=== PATIENT | female | born 1995 | race Caucasian/White ===

== ENCOUNTER → 2019-01-04 | Outpatient (CLI) | payer OTHER ==
--- NOTE | 2019-01-04 12:51 | NEURO WORKBENCH EEG REPORT ---
EEG Report Patient: Emily Mcarthur ID: [id number] Referring Doctor: Rupesh Sharma Date: 01/04/2019 Reason for study: Evaluate Epileptiform activity Medications: Vitamins History: This is a 23 year old female with a history of migraines since age 8 years, anxiety, who is 15 weeks . Approximately one month ago she had a migraine associated with slurred speech and memory impairment. This EEG was requested for evaluation of epileptiform activity. EEG Interpretation: This EEG was recorded during wakefulness, stage I, and stage II sleep. The awake EEG is characterized by a well organized background with a well developed and reactive posterior dominant rhythm (PDR) of approximately 10-11 Hz. The remainder of the waking background consisted of low amplitude frontally predominant beta activity. The EEG is symmetric in amplitudes and frequencies. There was occasional Mu rhythm noted in the right central region. Photic stimulation resulted in photic driving, and there was no epileptiform activity elicited with photic stimulation. Hyperventilation resulted in the appearance of diffuse high amplitude 4-7 Hz theta and 1-3 Hz delta activity (normal for age) and no epileptiform activity was elicited. There was frequent stage I sleep achieved and characterized by slow rolling eye movements, slowing of the background rhythm by 1-2 Hz, more prominent intermixed theta activity, and vertex waves. There were several periods of hypnogogic hypersynchrony characterized by high amplitude polymorphic mixed delta-theta activity lasting several seconds. Stage II sleep was achieved and symmetric sleep spindles were noted. There were no epileptiform abnormalities (no sharp waves and no spikes). There were no seizures. The EKG showed a regular rhythm with typically 60-90 beats per minute. EEG Impression: This EEG is within normal limits for age, and had frequent drowsiness/stage I sleep. There was no epileptiform activity or seizures. A single normal routine EEG does not rule out the possibility of epilepsy. If there is high clinical suspicion for epilepsy, then additional EEG evaluation should be considered with a sleep-deprived EEG or more prolonged EEG monitoring. INTERPRETING NEUROLOGIST: Junior Carmichael MD Board certified by the [place] [employer] [employer] in Neurology, Clinical Neurophysiology, and Sleep Medicine [facility]ENTERLynn
== END ==
LOC: NEURO 08:14
PROVIDERS: ATTEND Pediatrics
DX: R51 Headache (principal); R41.82 Altered mental status, unspecified; R20.0 Anesthesia of skin; Z33.1 Pregnant state, incidental
CPT/HCPCS: 95819

== ENCOUNTER 2019-05-27 19:08 | Outpatient (CLI) | payer OTHER ==
[2019-05-27 19:52] LABS: APPEARANCE,URINE CLEAR; BILIRUBIN,URINE NEGATIVE (NEGATIVE); COLOR,URINE YELLOW; GLUCOSE, URINE NEGATIVE (NEGATIVE); KETONES,URINE NEGATIVE (NEGATIVE); LEUKOCYTE ESTERASE,URINE NEGATIVE (NEGATIVE); NITRITE,URINE NEGATIVE (NEGATIVE); PROTEIN,URINE NEGATIVE (NEGATIVE); URINE SPECIFIC GRAVITY 1.009; UROBILINOGEN,URINE NEGATIVE mg/dL (<2.0)
[2019-05-27 20:00] LABS: URINE AMPHETAMINES SCREEN NEGATIVE; URINE BARBITURATES SCREEN NEGATIVE; URINE BENZODIAZEPINES SCREEN NEGATIVE; URINE COCAINE SCREEN NEGATIVE; URINE MARIJUANA (THC) SCREEN NEGATIVE; URINE METHADONE SCREEN NEGATIVE; URINE PHENCYCLIDINE SCREEN NEGATIVE
[2019-05-27] MEDS ORDERED: ONDANSETRON 4 MG TAB.RAPDIS PO ONE (20:32)
[2019-05-27] MEDS ORDERED: HYDROXYZINE PAMOATE 50 MG CAPSULE PO ONE (20:32)
[2019-05-27] MEDS ORDERED: HYDROXYZINE PAMOATE 50 MG CAPSULE ONE (20:35)
[2019-05-27] MEDS ORDERED: ONDANSETRON 4 MG TAB.RAPDIS ONE (20:35)
== END 2019-05-27 21:38 | disposition home or self-care (01) ==
LOC: LC 19:08
PROVIDERS: ATTEND Obstetrics & Gynecology
PROC: 4A1HXCZ Monitoring of Products of Conception, Cardiac Rate, External Approach (ICD-10-PCS; principal; 2019-05-27)
DX: O47.03 False labor before 37 completed weeks of gestation, third trimester (principal); Z3A.36 36 weeks gestation of pregnancy
CPT/HCPCS: 81001; 80307; 84112; 59025; S0119

== ENCOUNTER 2019-05-30 15:19 | Outpatient (CLI) | payer OTHER, MEDICAID ==
--- NOTE | 2019-05-30 15:25 | Non Stress Test Report ---
Non Stress Test Datetime Report Generated by CPN: 05/30/2019 15:24 DEMOGRAPHIC Test Number: 1 EGA NST: 36.0 INDICATION Indication for Study (NST) Other: lc VITAL SIGNS Temperature - NST: 98.1 Pulse - NST: 85 RESP - NST: 16 NBPSYS NST: 118 NBPDIA NST: 76 URINE RESULTS Urine Protein, NST: Negative Urine Ketones - NST: Negative Urine Glucose - NST: Negative Urine Blood - NST: Negative MONITORING Monitor Explained: Monitor Explained; Test Explained; Patient Verbalized Understanding Time on Monitor: 05/27/2019 19:34 Time off Monitor: 05/27/2019 21:00 NST Duration: 86 NST INTERVENTIONS NST Interventions: PO Hydration Physician Notified NST: Dr. Younger BABY A: [id number] BABY A Movement : Present Contraction Frequency : 2-4 FHR Baseline : 130 Accelerations : 15X15 Decelerations : None Variability : Moderate 6-25bpm NST Review: Meets Criteria for Reactive NST NST Review and Verified By : Lizzette Gutiérrez RN NST Results: Reactive NST REPORT Report Trigger: Send Report Report Trigger: Send Report
[2019-05-30 16:01] LABS: APPEARANCE,URINE CLOUDY; BILIRUBIN,URINE NEGATIVE (NEGATIVE); COLOR,URINE YELLOW; GLUCOSE, URINE NEGATIVE (NEGATIVE); KETONES,URINE NEGATIVE (NEGATIVE); LEUKOCYTE ESTERASE,URINE SMALL (NEGATIVE); NITRITE,URINE NEGATIVE (NEGATIVE); PROTEIN,URINE NEGATIVE (NEGATIVE); URINE SPECIFIC GRAVITY 1.009; UROBILINOGEN,URINE NEGATIVE mg/dL (<2.0)
[2019-05-30 16:22] LABS: URINE AMPHETAMINES SCREEN NEGATIVE; URINE BARBITURATES SCREEN NEGATIVE; URINE BENZODIAZEPINES SCREEN NEGATIVE; URINE COCAINE SCREEN NEGATIVE; URINE MARIJUANA (THC) SCREEN NEGATIVE; URINE METHADONE SCREEN NEGATIVE; URINE PHENCYCLIDINE SCREEN NEGATIVE
--- NOTE | 2019-05-30 17:55 | Non Stress Test Report ---
Non Stress Test Datetime Report Generated by CPN: 05/30/2019 17:55 INDICATION Indication for Study (NST) Other: LOF, Greater than 32 weeks MONITORING Monitor Explained: Monitor Explained; Test Explained; Patient Verbalized Understanding Time off Monitor: 05/29/2019 16:54 NST INTERVENTIONS NST Interventions: PO Hydration Physician Notified NST: Dr. Goins BABY A Movement : Present Contraction Frequency : 0 FHR Baseline : 130 Accelerations : 15X15 Decelerations : None Variability : Moderate 6-25bpm NST Review: Meets Criteria for Reactive NST NST Review and Verified By : Celsa Campos RN NST Results: Reactive NST REPORT Report Trigger: Send Report
== END 2019-05-30 17:12 | disposition home or self-care (01) ==
LOC: LC 15:19
PROVIDERS: ATTEND Obstetrics & Gynecology Gynecology
PROC: 4A1HXCZ Monitoring of Products of Conception, Cardiac Rate, External Approach (ICD-10-PCS; principal; 2019-05-30)
DX: Z36.89 Encounter for other specified antenatal screening (principal); Z3A.36 36 weeks gestation of pregnancy
CPT/HCPCS: 59025; 80307; 81005; 84112

== ENCOUNTER 2019-06-03 19:22 | Outpatient (CLI) | payer OTHER, MEDICAID ==
[2019-06-03 20:07] LABS: APPEARANCE,URINE CLOUDY; BILIRUBIN,URINE NEGATIVE (NEGATIVE); COLOR,URINE YELLOW; GLUCOSE, URINE NEGATIVE (NEGATIVE); KETONES,URINE 20 mg/dL (NEGATIVE); LEUKOCYTE ESTERASE,URINE MODERATE (NEGATIVE); NITRITE,URINE NEGATIVE (NEGATIVE); PROTEIN,URINE NEGATIVE (NEGATIVE); URINE SPECIFIC GRAVITY 1.017; UROBILINOGEN,URINE NEGATIVE mg/dL (<2.0)
[2019-06-03 20:16] LABS: URINE AMPHETAMINES SCREEN NEGATIVE; URINE BARBITURATES SCREEN NEGATIVE; URINE BENZODIAZEPINES SCREEN NEGATIVE; URINE COCAINE SCREEN NEGATIVE; URINE MARIJUANA (THC) SCREEN NEGATIVE; URINE METHADONE SCREEN NEGATIVE; URINE PHENCYCLIDINE SCREEN NEGATIVE
--- NOTE | 2019-06-03 21:44 | RADIOLOGY REPORT (SQ) ---
EXAM DESCRIPTION: US BIOPHYSICAL PROFILE WITHOUT NON STRESS TEST COMPLETED DATE/TME: 06/03/2019 00:00 CLINICAL HISTORY: 24 years, Female, inconclusive NST COMPARISON: None. TECHNIQUE: LIMITATIONS: None. FINDINGS: There is a live IUP in vertex presentation. cardiac activity was measured at 140 bpm. There is a normal amount of amniotic fluid. The amniotic fluid index is 19 cm. The biophysical profile is 6/8. Zero points were given for tone. IMPRESSION: The biophysical profile is 6/8. copyright 2010 [employer]- All Rights Reserved
== END 2019-06-03 21:36 | disposition home or self-care (01) ==
LOC: LC 19:22
PROVIDERS: ATTEND Obstetrics & Gynecology Gynecology
PROC: 4A1HXCZ Monitoring of Products of Conception, Cardiac Rate, External Approach (ICD-10-PCS; principal; 2019-06-03)
DX: Z36.89 Encounter for other specified antenatal screening (principal); Z3A.37 37 weeks gestation of pregnancy
CPT/HCPCS: 76819; 80307; 81001

== ENCOUNTER 2019-06-04 11:48 | Outpatient (CLI) | payer OTHER, MEDICAID ==
--- NOTE | 2019-06-04 13:16 | Non Stress Test Report ---
Non Stress Test Datetime Report Generated by CPN: 06/04/2019 13:16 DEMOGRAPHIC EGA NST: 37.1 EGA NST: 37.0 INDICATION Indication for Study (NST) Other: repeat NST and BPP from yest Indication for Study (NST) Other: inconclusive in office URINE RESULTS Urine Glucose - NST: Negative MONITORING Monitor Explained: Monitor Explained; Test Explained; Patient Verbalized Understanding Time on Monitor: 06/04/2019 12:02 Time on Monitor: 06/03/2019 19:51 Time off Monitor: 06/04/2019 12:22 Time off Monitor: 06/03/2019 20:30 NST Duration: 20 NST Duration: 39 NST INTERVENTIONS NST Interventions: PO Hydration NST Interventions: PO Hydration; Reposition Patient; Vibroacoustic Stim; For Biophysical Profile Physician Notified NST: Dr. Goins BABY A: [id number] BABY A Movement : Present Movement : Present Contraction Frequency : 0 Contraction Frequency : 0 FHR Baseline : 145 FHR Baseline : 140 Accelerations : 10X10 Accelerations : 15X15 Decelerations : None Decelerations : None Variability : Minimal - Undetectable to <=5bpm Variability : Moderate 6-25bpm NST Review: Does Not Meet Criteria for Reactive NST NST Review: Does Not Meet Criteria for Reactive NST NST Review and Verified By : Sofia Toledo RN NST Review and Verified By : Lizzette Gutiérrez RN NST Results: Questionable NST Results: Non-Reactive NST COMMENTS NST Comments: Dr. Goins on unit. Strip reviewed. BPP reviewed. Patient complaints brought to attention of provider. Plan for follow up BPP 06/04/19 NST REPORT Report Trigger: Send Report
--- NOTE | 2019-06-04 14:40 | RADIOLOGY REPORT (SQ) ---
EXAM DESCRIPTION: U/S PROFILE W/O STRESS COMPLETED DATE/TIME: 06/04/2019 12:59 pm REASON FOR STUDY: BPP COMPARISON: None. TECHNIQUE: Limited land-scale realtime and static images of the fetus to measure specified parameter s. LIMITATIONS: None. FINDINGS: HEART RATE: 157 beats per minute. KEITH: 18.7 cm. BREATHING MOVEMENT: 2 points. MOVEMENT: 2 points. POSTURE AND TONE: 2 points. QUALITATIVE KEITH: 2 points. OTHER: Breech presentation. IMPRESSION: BIOPHYSICAL PROFILE: 02/03. Trimester of : Third - 28 weeks to delivery COMMENT: BREATHING MOVEMENTS: 2 POINTS: PRESENT 0 POINTS: ABSENT MOTION: 2 POINTS: PRESENT 0 POINTS: ABSENT TONE: 2 POINTS: PRESENT 0 POINTS: ABSENT AMNIOTIC FLUID VOLUME: 2 POINTS: LARGEST POCKET GREATER THAN 2 CM DEPTH. 0 POINTS: NO POCKET OF 2 CM. TECHNICAL DOCUMENTATION: JOB ID: [id number] [email or web address]- All Rights Reserved Reading location - IP/workstation name: [email or web address]
== END 2019-06-04 13:02 | disposition home or self-care (01) ==
LOC: LC 11:48
PROVIDERS: ATTEND Obstetrics & Gynecology
PROC: 4A1HXCZ Monitoring of Products of Conception, Cardiac Rate, External Approach (ICD-10-PCS; principal; 2019-06-04)
DX: Z36.2 Encounter for other antenatal screening follow-up (principal); Z3A.37 37 weeks gestation of pregnancy
CPT/HCPCS: 76819

== ENCOUNTER 2019-06-10 15:54 | Outpatient (CLI) | payer OTHER, MEDICAID ==
--- NOTE | 2019-06-10 17:54 | Non Stress Test Report ---
Non Stress Test Datetime Report Generated by CPN: 06/10/2019 17:53 DEMOGRAPHIC EGA NST: 38.0 MONITORING Monitor Explained: Monitor Explained; Test Explained; Patient Verbalized Understanding Time on Monitor: 06/10/2019 15:59 Time off Monitor: 06/10/2019 17:43 NST Duration: 104 NST INTERVENTIONS NST Interventions: PO Hydration; Reposition Patient; For Biophysical Profile Physician Notified NST: Dr. Younger BABY A Movement : Present Contraction Frequency : irregular FHR Baseline : 135 Accelerations : 10X10 Decelerations : None Variability : Moderate 6-25bpm NST Review: Does Not Meet Criteria for Reactive NST NST Review and Verified By : Che Gambino RN NST Results: Non-Reactive NST REPORT Report Trigger: Send Report
--- NOTE | 2019-06-10 18:00 | RADIOLOGY REPORT (SQ) ---
EXAM DESCRIPTION: U/S PROFILE W/O STRESS COMPLETED DATE/TIME: 06/10/2019 5:26 pm REASON FOR STUDY: NON REACTIVE NST COMPARISON: None. TECHNIQUE: Limited land-scale realtime and static images of the fetus to measure specified parameter s. LIMITATIONS: None. FINDINGS: HEART RATE: 136 beats per minute. KEITH: 12 cm. BREATHING MOVEMENT: 2 points. MOVEMENT: 2 points. POSTURE AND TONE: 2 points. QUALITATIVE KEITH: 2 points. OTHER: No other significant finding. IMPRESSION: BIOPHYSICAL PROFILE: 02/03. Trimester of : Third - 28 weeks to delivery COMMENT: BREATHING MOVEMENTS: 2 POINTS: PRESENT 0 POINTS: ABSENT MOTION: 2 POINTS: PRESENT 0 POINTS: ABSENT TONE: 2 POINTS: PRESENT 0 POINTS: ABSENT AMNIOTIC FLUID VOLUME: 2 POINTS: LARGEST POCKET GREATER THAN 2 CM DEPTH. 0 POINTS: NO POCKET OF 2 CM. TECHNICAL DOCUMENTATION: JOB ID: [id number] [employer]- All Rights Reserved Reading location - IP/workstation name: [email or web address]
== END 2019-06-10 17:45 | disposition home or self-care (01) ==
LOC: LC 15:54
PROVIDERS: ATTEND Obstetrics & Gynecology
PROC: 4A1HXCZ Monitoring of Products of Conception, Cardiac Rate, External Approach (ICD-10-PCS; principal; 2019-06-10)
DX: Z34.93 Encounter for supervision of normal pregnancy, unspecified, third trimester (principal); Z3A.38 38 weeks gestation of pregnancy
CPT/HCPCS: 59025; 76819